=== PATIENT | male | born 2000 | race Caucasian/White ===

== ENCOUNTER 2022-01-27 20:29 | Emergency (ER) | payer BC ==
[2022-01-27 21:36] LABS: Actual Bicarbonate (HCO3v) 23 mEq/L (22-28); Base Excess -3.3 mEq/L (-2.0 to +3.0); Calcium, Ionized (venous) 1.17 mmol/L (1.16-1.32); Chloride (VBG) 101 mmol/L (98-106); Hemoglobin (Hb) 17.2 g/dL (13.2-17.3); Potassium (VBG) 3.74 mmol/L (3.70-5.30); Puncture Site Other Site; Sodium 139.7 mmol/L (133-146); pH (venous) 7.33 (7.32-7.43)
[2022-01-27 21:42] LABS: #Basophils 0.1 10x3/uL (0.0-0.2); #Monocytes 0.9 10x3/uL (0.0-1.1); #Neutrophils 8.8 10x3/uL (1.5-8.4); %Basophils 0.5 % (0.0-2.0); %Eosinophils 0.2 % (0.0-6.0); %Lymphocytes 11.3 % (18.0-47.0); %Monocytes 7.8 % (0.0-10.0); Hemoglobin 16.3 g/dL (13.5-17.5); Mean Corpuscular HGB CONC 35.3 g/dL (32.0-36.0); Platelet Count 308 10x3/uL (150-450); RBC Distribution Width 11.9 % (11.5-14.5); Red Blood Cell (RBC) Count 5.25 10x6/uL (4.32-5.72)
[2022-01-27 21:46] LABS: ALT (SGPT) 23 U/L (8-55); AST (SGOT) 19 U/L (10-45); Albumin 4.8 g/dL (3.5-5.0); Alkaline Phosphatase 90 U/L (50-130); Anion Gap 20 mmol/L (10-20); BUN (Urea Nitrogen) 15 mg/dL (8.4-21.0); Bilirubin, Total 1.1 mg/dL (0.2-1.2); CK (CPK) 213 U/L (30-200); Calc. Creatinine Clearance 0 mL/min (70-130); Calcium 9.7 mg/dL (7.8-10.44); Carbon Dioxide 23 mmol/L (22-29); Chloride 100 mmol/L (98-107); Estimated GFR 114; Globulin 2.3 g/dL (2.4-3.5); Glucose 114 mg/dL (70-105); Potassium 4.1 mmol/L (3.5-5.1); Protein, Total 7.1 g/dL (6.0-8.3); Sodium 139 mmol/L (136-145)
== END 2022-01-27 23:19 | disposition home or self-care (01) ==
LOC: CSHERS 20:29
DX: R41.82 Altered mental status, unspecified (principal); E10.9 Type 1 diabetes mellitus without complications
CPT/HCPCS: 36416; 70450; 80053; 82010; 82550; 82805; 85025